=== PATIENT | female | born 1970 | race Two or more races ===

== ENCOUNTER 2021-08-27 10:02 | Emergency (ER) | payer OTHER ==
[~2021-08-27] VITALS: Ht 160 cm; Wt 72.5 kg
[~2021-08-27 10:02] MED LIST: CIPR500T94 PO
--- NOTE | 2021-08-27 10:27 | EKG ---
[address] [address] Test Date: 2021-08-27 Test Time: 10:16:18 Pat Name: ANKUR REY Department: Room: Gender: F Immigration Lawyer: AKASH : 1970 Requested By: BRENNA VASQUEZ Order Number: [id number] Reading MD: Shaan Alcaraz MD Measurements Intervals [place] Rate: 71 P: 51 MN: 140 QRS: 68 QRSD: 76 T: 48 QT: 384 QTc: 422 Interpretive Statements SINUS RHYTHM Electronically Signed On 09-01-2021 14:13:32 RECEIVING TANK OPERATOR by Shaan Alcaraz MD
--- NOTE | 2021-08-27 10:38 | RAD ---
Single view of the chest. 08/27/2021 10:18 AM Indication: Reason: SOB / Spl. Instructions: / History: Comparison: None Findings: There is no focal consolidation. There is no pleural effusion or pneumothorax. The cardiome diastinal silhouette and pulmonary vasculature are within normal limits. No acute osseous abnormaliti es are seen. Impression: No evidence of acute cardiopulmonary process. Electronically signed by: Alcides Oconnor MD (08/27/2021 10:35 AM) [id number]
--- NOTE | 2021-08-27 11:00 | PHYS DOC ---
Past History Past Medical History: No Pertinent History (BRENNA VASQUEZ) Past Surgical History: , Hysterectomy (BRENNA VASQUEZ) Alcohol Use: Occasionally Drug Use: None (BRENNA VASQUEZ) General Adult EDM: Chief Complaint: SHORTNESS OF BREATH HPI: HPI: Patient is a 51 year old female who presents with shortness of breath that began 3 weeks ago. Patient reports that she feels "miserable," like she does when she has congestion and a cold. She denies having congestion or cough at this point, but describes general fatigue and malaise as such. She reports associated difficulty sleeping. Patient started using Purcell oil over her face and neck, and patient associates this oil with her current symptoms. Patient has also been using phentermine and a "water pill" for the past 3 months. She states she felt dehydrated, so she stopped taking the water pill. Patient denies any pain. She was last tested COVID negative in July, received her second dose of COVID-19 vaccination February 21 of this year. Patient denies fever, chills, congestion, chest pain, palpitations, cough. (BRENNA VASQUEZ) Review of Systems: Review of Systems: Constitutional: See HPI HENT: See HPI Respiratory: See HPI Cardiovascular: See HPI GI: Denies abdominal pain, nausea, vomiting, bloody stools or diarrhea : Denies dysuria or hematuria Musculoskeletal: Denies back pain or joint pain Integument: Denies rash or other skin lesions Neurologic: Denies headache, focal weakness or sensory changes (BRENNA VASQUEZ) Allergies: Allergies: Allergies Coded Allergies Type Severity Reaction Last Updated Verified No Known Drug Allergies 12/21/15 No (BRENNA VASQUEZ) Physical Exam: PE: Constitutional: Well developed, well nourished, no acute distress, non-toxic appearance. HENT: Normocephalic, atraumatic, bilateral external ears normal, oropharynx moist, no oral exudates, nose normal. Eyes: PERRLA, EOMI, conjunctiva normal, no discharge. Neck: Normal range of motion, no tenderness, supple, no stridor. Cardiovascular: Heart rate regular rhythm, no murmur. Lungs & Thorax: Bilateral breath sounds clear to auscultation. Skin: Warm, dry, no erythema, no rash. Neurologic: Alert and oriented x4, motor function grossly intact, sensory function grossly intact, no focal deficits noted. (BRENNA VASQUEZ) Current Patient Data: Labs: Laboratory Tests Test 08/27/21 10:50 White Blood Count 4.8 x10^3/uL (4.0-11.0) Red Blood Count 4.31 x10^6/uL (3.50-5.40) Hemoglobin 12.9 g/dL (12.0-15.5) Hematocrit 39.2 % (36.0-47.0) Mean Corpuscular Volume 91 fL (79-100) Mean Corpuscular Hemoglobin 30 pg (25-35) Mean Corpuscular Hemoglobin Concent 33 g/dL (31-37) Red Cell Distribution Width 12.9 % (11.5-14.5) Platelet Count 281 x10^3/uL (140-400) Neutrophils (%) (Auto) 48 % (31-73) Lymphocytes (%) (Auto) 41 % (24-48) Monocytes (%) (Auto) 7 % (0-9) Eosinophils (%) (Auto) 3 % (0-3) Basophils (%) (Auto) 1 % (0-3) Neutrophils # (Auto) 2.3 x10^3uL (1.8-7.7) Lymphocytes # (Auto) 2.0 x10^3/uL (1.0-4.8) Monocytes # (Auto) 0.3 x10^3/uL (0.0-1.1) Eosinophils # (Auto) 0.1 x10^3/uL (0.0-0.7) Basophils # (Auto) 0.1 x10^3/uL (0.0-0.2) Sodium Level 137 mmol/L (136-145) Potassium Level 4.4 mmol/L (3.5-5.1) Chloride Level 105 mmol/L (98-107) Carbon Dioxide Level 27 mmol/L (21-32) Anion Gap 5 (6-14) Blood Urea Nitrogen 16 mg/dL (7-20) Creatinine 0.8 mg/dL (0.6-1.0) Estimated GFR (Cockcroft-Gault) 75.9 BUN/Creatinine Ratio 20 (6-20) Glucose Level 92 mg/dL (70-99) Calcium Level 8.5 mg/dL (8.5-10.1) Magnesium Level 2.3 mg/dL (1.8-2.4) Total Bilirubin 0.2 mg/dL (0.2-1.0) Aspartate Amino Transf (AST/SGOT) 16 U/L (15-37) Alanine Aminotransferase (ALT/SGPT) 27 U/L (14-59) Alkaline Phosphatase 47 U/L (46-116) Total Protein 7.6 g/dL (6.4-8.2) Albumin 3.7 g/dL (3.4-5.0) Albumin/Globulin Ratio 0.9 (1.0-1.7) Lipase 187 U/L (73-393) Vital Signs: VS - Last 72 Hours, by Label Date Time Temp Pulse Resp B/P (MAP) Pulse Ox O2 Delivery O2 Flow Rate FiO2 08/27/21 10:02 98.3 85 18 125/88 (100) 100 Room Air (BRENNA VASQUEZ) EKG: EKG: EKG Interpreted by Dr. Dunaway at 1018: Regular rate and rhythm 71 bpm with no ectopic beats. No concerning ST-T wave changes. Regular QR interval. (BRENNA VASQUEZ) Radiology/Procedures: Radiology/Procedures: PROCEDURE: PORTABLE CHEST 1V Single view of the chest. 08/27/2021 10:18 AM Indication: Reason: SOB / Spl. Instructions: / History: Comparison: None Findings: There is no focal consolidation. There is no pleural effusion or pneumothorax. The cardiomediastinal silhouette and pulmonary vasculature are within normal limits. No acute osseous abnormalities are seen. Impression: No evidence of acute cardiopulmonary process. Electronically signed by: Alcides Oconnor MD (08/27/2021 10:35 AM) [id number] (BRENNA VASQUEZ) Heart Score: C/O Chest Pain: No (BRENNA VASQUEZ) Course & Med Decision Making: Course & Med Decision Making Pertinent Labs and Imaging studies reviewed. (See chart for details) Patient denies history of allergies to citrus, oranges. It is unlikely that the topical application of this oil is causing her to feel short of breath and generally fatigued. Patient instructed to quarantine at home until she gets Covid PCR swab results tomorrow. Until then, patient will be treated for viral syndrome. Supportive treatment will include plenty of rest, clear fluids, alternating NSAID with acetaminophen at home. Patient is instructed to return to the department if her symptoms do not improve or worsen. Patient understands and is agreeable to discharge plan. (BRENNA VASQUEZ) Dragon Disclaimer: Dragon Disclaimer: This electronic medical record was generated, in whole or in part, using a voice recognition dictation system. (BRENNA VASQUEZ) Attending Co-Sign The patient was seen and interviewed as well as examined at the bedside. The chart was reviewed. The case was discussed. Agree with the plan of care. (LEEROY DUNAWAY DO) Departure Departure: Impression: Primary Impression: Viral syndrome Disposition: HOME / SELF CARE / HOMELESS Condition: STABLE Referrals: AKHIL RUSS MD (PCP) Patient Instructions: Viral Syndrome Additional Instructions: As discussed, you should quarantine until you get your Covid swab test results. Supportive treatment for your current symptoms will include plenty of rest, lots of clear fluids, and alternating NSAIDs with acetaminophen. Please return to the emergency department if your symptoms do not improve or worsen. BRENNA VASQUEZ Aug 27, 2021 11:00 LEEROY DUNAWAY DO Aug 28, 2021 15:40
[2021-08-27 11:09] LABS: BASO # 0.1 x10^3/uL (0.0-0.2); BASO % 1 % (0-3); EOS # 0.1 x10^3/uL (0.0-0.7); EOS % 3 % (0-3); HEMATOCRIT 39.2 % (36.0-47.0); HEMOGLOBIN 12.9 g/dL (12.0-15.5); LYMPH % 41 % (24-48); MEAN CORPUSCULAR HEMOGLOBIN 30 pg (25-35); MEAN CORPUSCULAR HGB CONC 33 g/dL (31-37); MEAN CORPUSCULAR VOLUME 91 fL (79-100); MONO # 0.3 x10^3/uL (0.0-1.1); MONO % 7 % (0-9); NEUT # 2.3 x10^3uL (1.8-7.7); NEUT % 48 % (31-73); PLATELET COUNT 281 x10^3/uL (140-400); RED BLOOD COUNT 4.31 x10^6/uL (3.50-5.40); RED CELL DISTRIBUTION WIDTH 12.9 % (11.5-14.5); WHITE BLOOD COUNT 4.8 x10^3/uL (4.0-11.0)
[2021-08-27 11:14] LABS: CALCIUM 8.5 mg/dL (8.5-10.1); CREATININE 0.8 mg/dL (0.6-1.0); GFR 75.9; POTASSIUM 4.4 mmol/L (3.5-5.1)
[2021-08-27 11:20] LABS: ALBUMIN 3.7 g/dL (3.4-5.0); ALBUMIN/GLOBULIN RATIO 0.9 (1.0-1.7); MAGNESIUM 2.3 mg/dL (1.8-2.4); TOTAL BILIRUBIN 0.2 mg/dL (0.2-1.0); TOTAL PROTEIN 7.6 g/dL (6.4-8.2)
[2021-08-27 12:10] VITALS: BP 137/92
== END 2021-08-27 12:16 | disposition home or self-care (01) ==
LOC: ER 10:02
DX: B34.9 Viral infection, unspecified (principal); Z20.822 Contact with and (suspected) exposure to COVID-19
CPT/HCPCS: 36415; 71045; 80053; 83690; 83735; 85025; 93005; 99285; C9803; U0003